=== PATIENT | male | born 1940 | race Caucasian/White ===

== ENCOUNTER 2022-02-26 18:07 | Emergency (ER) | payer MEDICARE, OTHER ==
[~2022-02-26] VITALS: Ht 182.9 cm; Wt 120.0 kg
[2022-02-26] MEDS ORDERED: LIDOCAINE 2% MDV 20ML VIAL SC ONE (22:15)
[2022-02-26] MEDS ORDERED: BACITRACIN OINTMENT 30GM TUBE TOP ONE (22:15)
[2022-02-27] MEDS ORDERED: CEPH500C PO (01:02)
[2022-02-27 01:25] VITALS: BP 126/72
[2022-02-27] MEDS ORDERED: CEPHALEXIN 500 MG CAP PO ONE (02:00)
== END 2022-02-27 01:26 | disposition home or self-care (01) ==
LOC: M ED 18:07
DX: S91.112A Laceration without foreign body of left great toe without damage to nail, initial encounter (principal); S91.115A Laceration without foreign body of left lesser toe(s) without damage to nail, initial encounter; W22.8XXA Striking against or struck by other objects, initial encounter; I48.91 Unspecified atrial fibrillation

== ENCOUNTER 2022-03-04 07:34 | Emergency (ER) | payer MEDICARE, OTHER ==
[~2022-03-04] VITALS: Ht 193 cm; Wt 130.6 kg
[~2022-03-04 07:34] MED LIST: CEPH500C PO
[2022-03-04] MEDS ORDERED: METO1TAB87 (11:35)
[2022-03-04] MEDS ORDERED: DILT120C89 (11:35)
[2022-03-04] MEDS ORDERED: XARE20TA (11:35)
[2022-03-04] MEDS ORDERED: TAMS1CAP17 (11:35)
[2022-03-04] MEDS ORDERED: ROSU20TA5 (11:35)
[2022-03-04] MEDS ORDERED: NEOSPORIN OINT 0.9 GM PKT TOP ONE (11:40)
[2022-03-04 11:45] LABS: BASO # 0.1 10^3/uL (0.0-0.2); BASO % 0.7 % (0.0-1.0); EOS # 0.1 10^3/uL (0.0-0.5); EOS % 1.6 % (0.0-3.0); HEMATOCRIT 42.4 % (42.0-52.0); HEMOGLOBIN 13.9 g/dl (13.5-17.5); LYMPH # 1.2 10^3/uL (1.5-5.0); LYMPH % 17.5 % (24.0-44.0); MEAN CORPUSCULAR HEMOGLOBIN 30.8 pg (27.0-33.0); MEAN CORPUSCULAR HGB CONC 32.8 g/dl (32.0-36.5); MONO # 0.5 10^3/uL (0.0-0.8); MONO % 7.4 % (2.0-8.0); NEUTROPHILS % 72.5 % (36.0-66.0); PLATELET COUNT, AUTOMATED 195 10^3/uL (150-450); RED BLOOD COUNT 4.51 10^6/uL (4.30-6.10); WHITE BLOOD COUNT 6.9 10^3/uL (4.0-10.0)
[2022-03-04 12:02] LABS: ERYTHROCYTE SEDIMENTATION RATE 10 mm/hr (0-20)
[2022-03-04 12:09] LABS: BLOOD UREA NITROGEN 18 MG/DL (7-18); CALCIUM LEVEL 8.9 MG/DL (8.8-10.2); CARBON DIOXIDE LEVEL 29 MEQ/L (21-32); CHLORIDE LEVEL 107 MEQ/L (98-107); CREATININE FOR GFR 0.76 MG/DL (0.70-1.30); GLOMERULAR FILTRATION RATE > 60.0 (>42); GLUCOSE, FASTING 80 MG/DL (70-100); POTASSIUM SERUM 4.2 MEQ/L (3.5-5.1); SODIUM LEVEL 138 MEQ/L (136-145)
[2022-03-04] MEDS ORDERED: CEPH500C PO (12:19)
[2022-03-04 12:58] VITALS: BP 121/67
== END 2022-03-04 12:58 | disposition home or self-care (01) ==
LOC: M ED 07:34
DX: Z51.89 Encounter for other specified aftercare (principal); I87.2 Venous insufficiency (chronic) (peripheral)